=== PATIENT | male | born 1970 | race American Indian/Alaskan Native ===

== ENCOUNTER 2017-05-07 10:51 | Outpatient (CLI) | payer OTHER ==
--- NOTE | 2017-05-07 11:41 | XRay Report ---
LUMBOSACRAL SPINE, 3 VIEWS: History: Lower back pain Findings: The vertebral bodies, disk spaces and posterior elements are intact. No compression deformity or malalignment. Mild degenerative disc disease and moderate facet arthropathy are identified at all levels. Facet arthropathy is most pronounced at L4-5. The SI joints are symmetric and unremarkable. Impression: Lumbar spondylosis. No acute process identified.
--- NOTE | 2017-05-07 11:43 | XRay Report ---
CERVICAL SPINE, 3 views: History: Neck pain. Findings: The vertebral bodies, disk spaces, posterior elements and prevertebral soft tissues are intact. Mild to moderate degenerative disc disease is identified at C5-6 and C6-7. T1 is not clearly identified on the lateral view but is unremarkable on the AP view. The dens is intact. No acute fracture or malalignment is identified. Impression: Cervical spondylosis. No evidence for acute injury but please note that T1 is incompletely imaged.
--- NOTE | 2017-05-07 22:13 | XRay Report ---
FINAL REPORT PROCEDURE: XR HIP 2-3V RT TECHNIQUE: Single-view pelvis additional view right hip HISTORY: LOWER BACK AND NECK PAIN COMPARISON: no prior studies are available for comparison. 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 Sacroiliitis. IMPRESSION: No acute fracture specifically right hip
== END 2017-05-07 10:52 | disposition home or self-care (01) ==
LOC: XRAY 10:51
PROVIDERS: ATTEND Internal Medicine
DX: M16.0 Bilateral primary osteoarthritis of hip (principal); M47.892 Other spondylosis, cervical region; M50.322 Other cervical disc degeneration at C5-C6 level; M50.323 Other cervical disc degeneration at C6-C7 level; M47.896 Other spondylosis, lumbar region; M51.37 Other intervertebral disc degeneration, lumbosacral region; M86.8X8 Other osteomyelitis, other site; M46.1 Sacroiliitis, not elsewhere classified; F32.9 Major depressive disorder, single episode, unspecified
CPT/HCPCS: 72040; 72100